=== PATIENT | female | born 1940 | race Caucasian/White ===

== ENCOUNTER 2019-10-01 17:13 | Emergency (ER) | payer MEDICARE, SELFPAY ==
--- NOTE | ~2019-10-01 | CT_ITS ---
EXAMINATION: CT brain wo con INDICATION: Facial numbness COMPARISON: 11/11/2012 TECHNIQUE: Standard unenhanced head CT. The dose-length product (DLP) was 605.33 mGy-cm. The mA was a djusted according to patient size. Iterative reconstruction technique was employed. FINDINGS: There is no acute intraparenchymal hemorrhage. No evidence of mass lesion. No evidence of a cute infarction. There is mild periventricular and subcortical hypodensity probably related to small vessel ischemic disease. There is mild prominence of the sulci and ventricles related to cerebral atr ophy. Intracranial calcified cerebral atherosclerosis is noted. There are no extra-axial collections. There is no mass effect or midline shift. The orbits and soft tissues are unremarkable. The visuali zed sinuses and mastoid air cells are well aerated. IMPRESSION: 1. No acute intracranial abnormality. 2. Age related findings. Reviewed, dictated and finalized at location A.
--- NOTE | ~2019-10-01 | XR_ITS ---
EXAMINATION: XR chest 1V portable INDICATION: Facial numbness TECHNIQUE: Portable AP chest at 1806 hours COMPARISON: 02/26/2014 FINDINGS: The lungs are free of acute opacities. There is no pleural effusion or pneumothorax. The ca rdiomediastinal silhouette is normal. The visualized bones and soft tissues are unremarkable. IMPRESSION: 1. No acute cardiopulmonary abnormality. Reviewed, dictated and finalized at location A.
[2019-10-01 17:16] VITALS: BP 179/77; PULSE 71; RESP 26; TEMP 36.2; O2SAT 97
--- NOTE | 2019-10-01 17:52 | ECG_ITS ---
Measurements Intervals [place] Rate: 57 P: 53 TN: 173 QRS: -48 QRSD: 121 T: 43 QT: 437 QTc: 429 Interpretive Statements SINUS BRADYCARDIA LEFT ANTERIOR FASCICULAR BLOCK ABNORMAL ECG Electronically Signed On 10-01-2019 19:17:50 CDT by Erwin Malcolm D.O.
[2019-10-01 17:54] VITALS: BP 179/77; PULSE 58; RESP 15; O2SAT 100
[2019-10-01 18:19] LABS: Glucose Point of Care 81 (65-105)
[2019-10-01 18:20] VITALS: PULSE 62; RESP 15; O2SAT 97
[2019-10-01 18:22] LABS: Basophils Percent Auto 0.5 % (0.2-1.2); Eosinophils Absolute Auto 0.3 K/mm3 (0-0.3); Eosinophils Percent Auto 3.5 % (0-4.4); Hematocrit 38.6 % (37.0-47.0); Hemoglobin 12.8 g/dL (12.0-15.0); Immature Granulocyte Absolute 0.01 K/mm3 (0.00-0.031); Immature Granulocyte Percent A 0.1 % (0-0.5); Lymphocytes Absolute Auto 1.88 K/mm3 (0.9-3.2); Lymphocytes Percent Auto 25.3 % (18.3-44.2); Mean Corpuscular HGB Conc 33.2 g/dl (32-36); Mean Corpuscular Hemoglobin 28.3 pg (26-34); Mean Corpuscular Volume 85.4 fl (80-100); Mean Platelet Volume 11.4 fl (7.4-10.4); Monocytes Absolute Auto 0.6 K/mm3 (0.1-0.6); Monocytes Percent Auto 7.8 % (2.6-8.5); Neutrophils Absolute Auto 4.7 K/mm3 (1.3-6.7); Neutrophils Percent Auto 62.8 % (45.5-73.1); Platelet Count Result 234 k/mm3 (150-375); Red Blood Count 4.52 M/mm3 (4.2-5.4); Red Cell Distribution Width 13.9 % (11.5-14.5); White Blood Count 7.4 K/mm3 (4.5-10.0)
[2019-10-01 18:33] LABS: Blood Urea Nitrogen 30 mg/dL (7-17); Calcium 8.9 mg/dL (8.4-10.2); Carbon Dioxide 26 mmol/L (22-30); Chloride 104 mmol/L (98-107); Estimated Glomerular Filt Rate 60; Glucose 91 mg/dL (65-105); INR 1.3; Potassium 4.2 mmol/L (3.4-5.0); Prothrombin Time 15.4 Seconds (11.1-14.7); Sodium 137 mmol/L (137-145)
[2019-10-01 18:34] LABS: Partial Thromboplastin Time 27.1 SECONDS (22.3-36.8)
[2019-10-01 18:45] LABS: Troponin I < 0.012 ng/mL (0.000-0.034)
--- NOTE | 2019-10-01 19:04 | ED.NEUROSD ---
HPI - Neuro Symptoms/Deficit General Chief Complaint: Neuro Symptoms/Deficit Stated Complaint: POSSIBLE cva Time Seen by Provider: 10/01/19 19:03 History of Present Illness HPI Narrative: Acute right sided facial pain this afternon. Lasted less than a few hours. Located in the lower half of the face and radiating into the neck and chest. sharp in character. Severe. No associated symptoms. Happened while walking the dog. Resolved spontaneously while driving. No Weakness, numbness, SOB, slurred speech. Related Data Home Medications Medication Instructions Recorded Confirmed diltiazem HCl [Cardizem] 30 mg PO DAILY 10/01/19 levothyroxine 88 mcg PO DAILY 10/01/19 Allergies Allergy/AdvReac Type Severity Reaction Status Date / Time No Known Allergies Allergy Verified 10/01/19 17:22 Review of Systems Review of Systems: All systems reviewed & are unremarkable except as noted in HPI and below Constitutional: Constitutional: Denies chills and Denies fever(s) Eyes: Eyes: Denies change in vision ENT: Denies sore throat Cardiovascular: Cardiovascular: Denies chest pain Respiratory: Respiratory: Denies dyspnea Gastrointestinal: Gastrointestinal: Denies nausea Neurologic: Denies dizziness, Denies numbness and Denies weakness Psychiatric: Psychiatric: Reports anxiety PMFSH Past Medical History Medical History (Updated 10/02/19 @ 01:23 by Tejas Coello MD) Anxiety and depression CKD (chronic kidney disease) stage 3, GFR 30-59 ml/min Essential (primary) hypertension Hypothyroidism Phlebitis and thrombophlebitis of unspecified deep vessels of unspecified lower extremity Protein S deficiency Family History Family History Mother Diabetes mellitus Family history of cardiovascular disease Family history of pulmonary embolism Father Cerebrovascular accident Social History Social History Smoking status: Never smoker Alcohol intake: never Gender identity (if verbalized by the patient): Female Exam Const: General: no acute distress and alert Orientation/consciousness: patient oriented x3 HENMT: Head: normal to inspection Ears: TM's normal bilaterally Face and sinus: normal facial exam and sinuses nontender Mouth: Yes moist mucous membranes Teeth and gingiva: dentition normal Eyes: Conjunctivae: conjunctivae normal Pupils: Equal, round and reactive pupils present EOM: EOMs intact bilaterally Resp: Effort & Inspection: normal respiratory effort Auscultation: clear to auscultation bilaterally Cardio: Rate: regular rate Rhythm: regular rhythm Skin: General skin exam: normal color Neuro: General: patient oriented x3, moves all extremities and CN's II-XI intact bilaterally Speech: normal speech Gait exam (Neuro): Normal gait present Extrem: General: normal to inspection Course Vital Signs Vital signs: Vital Signs Temperature 36.2 C L 10/01/19 17:16 Pulse Rate 71 10/01/19 17:16 Respiratory Rate 26 H 10/01/19 17:16 Blood Pressure 179/77 H 10/01/19 17:16 Pulse Oximetry 97 10/01/19 17:16 Temperature 36.8 C 10/01/19 21:08 Pulse Rate 78 10/01/19 21:08 Respiratory Rate 17 10/01/19 21:08 Blood Pressure 151/69 H 10/01/19 21:08 Pulse Oximetry 99 10/01/19 21:08 MDM - Neuro Symptoms/Deficit MDM Narrative Medical decision making narrative: Symptoms are fairly nonspecific and resolved long before her arrival here. Could be anginal equivalent, no sign of acute ischemia on EKG and troponins wer negative x2. No findings to suggest CVA. Could be trigeminal neuralgia, anxiety, dental pain Medical Records Attestation: I reviewed the patient's medical records. Lab Data Attestation: I reviewed the patient's lab results. Result diagrams: 10/01/19 18:13 10/01/19 18:13 Labs: Lab Results 10/01/19 10/01/19
[2019-10-01 20:07] LABS: Troponin I < 0.012 ng/mL (0.000-0.034)
[2019-10-01 20:31] VITALS: BP 133/87; PULSE 72; RESP 15; O2SAT 97
[2019-10-01 21:08] VITALS: BP 151/69; PULSE 78; RESP 17; TEMP 36.8; O2SAT 99
== END 2019-10-01 21:10 | disposition home or self-care (01) ==
PROVIDERS: Emergency Medicine; Emergency Provider Emergency Medicine; PCP Family Medicine
DX: R51 Headache (principal); I12.9 Hypertensive chronic kidney disease with stage 1 through stage 4 chronic kidney disease, or unspecified chronic kidney disease; N18.3 Chronic kidney disease, stage 3 (moderate); E03.9 Hypothyroidism, unspecified; D68.59 Other primary thrombophilia; R00.1 Bradycardia, unspecified; I44.4 Left anterior fascicular block
CPT/HCPCS: 36415; 70450; 71045; 80048; 82948; 84484; 85025; 85610; 85730; 93005; 99284

== ENCOUNTER 2021-11-16 01:02 | Emergency (ER) | payer MEDICARE, SELFPAY ==
[2021-11-16 01:06] VITALS: BP 155/103; PULSE 78; RESP 18; TEMP 36.7; O2SAT 98
--- NOTE | 2021-11-16 01:16 | ED.ANIMALBIT ---
HPI - Animal Bite General Chief Complaint: Animal Bite Stated Complaint: dog bite face Time Seen by Provider: 11/16/21 01:07 History of Present Illness HPI narrative: Patient is an 81-year-old female here for evaluation of a laceration sustained to her right upper lip 20 minutes prior to arrival. Patient was leaning down to kiss her dog when the dog jumped up and bit her on the upper lip. Notes a chunk of her lip came out. Denies head injury or other injury sustained in the incident. Patient unsure of last tetanus. Patient did not irrigate the wound and presented straight to the ED. Dog is vaccinated against rabies and up-to-date on all shots. Related Data Allergies Allergy/AdvReac Type Severity Reaction Status Date / Time No Known Allergies Allergy Verified 05/14/21 07:51 Review of Systems Review of Systems: Gen: Denies fevers or chills Eyes: Denies eye pain or visual change ENT: Denies congestion Respiratory: Denies shortness of breath or cough CV: Denies chest pain or palpitations GI: Denies abdominal pain nausea, emesis or diarrhea denies burning, urgency, frequency or hematuria Musculoskeletal: Denies back pain or muscle pain Neuro: Denies numbness, tingling, weakness or focal weakness Skin: Reports laceration to right upper lip. Except as documented, all other systems reviewed and negative [facility] Past Medical History Medical History Adult BMI 31.0-31.9 kg/sq m Anxiety and depression Arthritis Cardiac arrhythmia CKD (chronic kidney disease) stage 3, GFR 30-59 ml/min Elevated lipids Essential (primary) hypertension Heart murmur Hypothyroidism Phlebitis and thrombophlebitis of unspecified deep vessels of unspecified lower extremity Protein S deficiency Stroke Thyroid disease Surgical History Surgical History History of cholecystectomy History of hernia repair History of hysterectomy History of thyroidectomy Family History Family History Mother Diabetes mellitus Family history of cardiovascular disease Family history of pulmonary embolism Father Cerebrovascular accident Social History Social History Second hand tobacco smoke exposure: No Alcohol intake: never Substance use: never Substance use type: does not use Gender identity (if verbalized by the patient): Female Sexual Orientation (if Verbalized by the Patient): Straight or Heterosexual Spiritual care concerns: No Agree to blood products: Yes Exam Narrative: Gen: Alert, oriented, uncomfortable. Eyes: EOMI, no icterus ENT: 1 cm area of loss of the superficial and lateral aspect of the upper right lip extending from the labial commissure, does not reach philtrum, no active bleeding. superficial linear laceration to middle of upper lip not involving ángela border Pulm: Respirations even and unlabored, symmetric thorax expansion, no audible stridor or visible cyanosis CV: Regular rate per telemetry GI: No distension, no voluntary/involuntary guarding Neuro: AOx4, moves all extremities without apparent difficulty or weakness, follows commands Skin: Lip laceration as described above Psych: Normal mood/affect, insight/judgement good, adequate fund of knowledge, recent/remote memory intact Course Vital Signs Vital signs: Vital Signs Temperature 98.1 F 11/16/21 01:06 Pulse Rate 78 11/16/21 01:06 Respiratory Rate 18 11/16/21 01:06 Blood Pressure 155/103 H 11/16/21 01:06 Pulse Oximetry 98 11/16/21 01:06 Temperature 98.1 F 11/16/21 01:06 Pulse Rate 88 11/16/21 02:50 Respiratory Rate 18 11/16/21 02:50 Blood Pressure 150/90 H 11/16/21 02:50 Pulse Oximetry 99 11/16/21 02:50 MDM - Animal Bite MDM Narrative Medical decision making narrative: 81-year-
[2021-11-16] MEDS: TETANUS,DIPHTHERIA,AC PERTUSSIS ADULT (0.5 ML) BOOSTRIX IM (01:32)
[2021-11-16] MEDS: ACETAMINOPHEN 325 MG TABLET 650 MG PO (02:40)
[2021-11-16] MEDS: AMOXICILLIN/CLAVULANATE K 875-125 MG TAB 1 TABLET PO (02:41)
[2021-11-16 02:50] VITALS: BP 150/90; PULSE 88; RESP 18; O2SAT 99
== END 2021-11-16 03:02 | disposition home or self-care (01) ==
PROVIDERS: Emergency Provider Emergency Medicine; PCP Family Medicine
DX: S01.551A Open bite of lip, initial encounter (principal); Z23 Encounter for immunization; I12.9 Hypertensive chronic kidney disease with stage 1 through stage 4 chronic kidney disease, or unspecified chronic kidney disease; N18.30 Chronic kidney disease, stage 3 unspecified; D53.0 Protein deficiency anemia; E89.0 Postprocedural hypothyroidism; Z86.73 Personal history of transient ischemic attack (TIA), and cerebral infarction without residual deficits; W54.0XXA Bitten by dog, initial encounter
CPT/HCPCS: 90471; 90715; 99283; A9270

== ENCOUNTER 2022-02-07 12:27 | Outpatient (CLI) | payer MEDICARE, SELFPAY ==
--- NOTE | 2022-02-07 12:55 | ECHO_ITS ---
Patient Info Name: Kristi Garcia Age: 82 years : 1940 Gender: Female Ht: 64 in Wt: 140 lbs BSA: 1.70 m2 HR: 67 bpm BP: 130 / 55 mmHg Technical Quality: Good Exam Date: 02/07/2022 1:28 PM Exam Location: [facility] Patient Status: Outpatient Admit Date: 02/07/2022 Staff Ordering Physician: Erwin Malcolm DO Attending Provider: Erwin Malcolm DO Referring Physician: Gold REILLY; Exam Type: CA echo doppler color flow Study Info Indications R07.9 - Chest pain, unspecified Complete two-dimensional, color flow and Doppler transthoracic echocardiogram is performed. Strain analysis performed. History/Risk Factors Hypertension: Yes Summary 1. Complete two-dimensional, color flow and Doppler transthoracic echocardiogram is performed. 2. Left ventricular chamber dimension is normal. 3. Left ventricular systolic function is normal, estimated at 65-70%. 4. There is mildly increased left ventricular wall thickness. 5. The left ventricular diastolic function is grade I diastolic dysfunction. 6. E/e' 20 is elevated. 7. Global longitudinal strain is normal at -17.0%. 8. Left atrial chamber dimension is moderately enlarged. 9. There is severe aortic valve sclerosis. 10. There is moderate aortic valve stenosis with a peak velocity of 255 cm/s, mean gradient of 14 mmHg, and aortic valve area of 1.4 cm2. 11. There is mild aortic valve regurgitation. 12. The mitral valve has mildly calcified leaflets and moderately calcified annulus. 13. There is mild mitral valve regurgitation. 14. There is trace tricuspid valve regurgitation. 15. There is mild pulmonic regurgitation. 16. Dilated inferior vena cava with >50% collapse upon inspiration consistent with elevated right atrial pressure, 10 mmHg. Left Ventricle E/e' 20 is elevated. Global longitudinal strain is normal at -17.0%. Left ventricular chamber dimension is normal. Left ventricular systolic function is normal, estimated at 65-70%. There is mildly increased left ventricular wall thickness. The left ventricular diastolic function is grade I diastolic dysfunction. Right Ventricle Right ventricular systolic function is normal and with normal TAPSE 2.6 cm. Right ventricular chamber dimension is normal. Left Atria Left atrial chamber dimension is moderately enlarged. Right Atria Right atrial chamber dimension is normal. Aortic Valve The aortic valve is trileaflet. There is severe aortic valve sclerosis. There is moderate aortic valve stenosis with a peak velocity of 255 cm/s, mean gradient of 14 mmHg, and aortic valve area of 1.4 cm2. There is mild aortic valve regurgitation. Pulmonic Valve There is mild pulmonic regurgitation. Mitral Valve The mitral valve has mildly calcified leaflets and moderately calcified annulus. There is no mitral valve stenosis. There is mild mitral valve regurgitation. Tricuspid Valve RVSP is not calculated due to an inadequate TR jet. There is trace tricuspid valve regurgitation. Pericardium/Pleural There is no pericardial effusion. Inferior Vena Cava Dilated inferior vena cava with >50% collapse upon inspiration consistent with elevated right atrial pressure, 10 mmHg. Aorta The aortic root size at the sinus of Valsalva is normal. Left Ventricular Outflow Tract Name Value Normal
== END 2022-02-07 12:28 | disposition home or self-care (01) ==
PROVIDERS: PCP Family Medicine; Visit Provider Internal Medicine Cardiovascular Disease
DX: I08.3 Combined rheumatic disorders of mitral, aortic and tricuspid valves (principal)
CPT/HCPCS: 93306

== ENCOUNTER 2022-02-07 18:26 | Emergency (ER) | payer MEDICARE, SELFPAY ==
--- NOTE | 2022-02-07 18:27 | ED.HEATRA ---
HPI - Head Injury General Chief complaint: Wound/Laceration Stated complaint: SCALP LACERATION Time Seen by Provider: 02/07/22 18:31 Source: patient, RN notes reviewed and old records reviewed Mode of arrival: ambulatory Limitations: no limitations History of Present Illness HPI Narrative: 82-year-old female presents to [facility] with a scalp laceration patient is confused, does not know the day of the week. Patient does know her name and date of . Daughter states she has high anxiety and gets confused when she is stressed. Patient states that she thinks that she tripped over something fell hit her head. Bleeding is controlled. Happened just prior to arrival. Mechanism of Injury: fall Place: home Loss of Consciousness: unsure Location of injury: occipital (to right side) Related Data Allergies Allergy/AdvReac Type Severity Reaction Status Date / Time No Known Allergies Allergy Verified 01/16/22 08:55 Review of Systems Review of Systems: All systems reviewed & are unremarkable except as noted in HPI and below Constitutional: Constitutional: Reports no additional constitutional complaints, Denies chills and Denies fever(s) Eyes: Eyes: Reports no additional eye complaints ENT: Reports system reviewed and no additional complaints, except as documented Cardiovascular: Cardiovascular: Reports no additional cardiovascular complaints Respiratory: Respiratory: Reports no additional respiratory complaints Gastrointestinal: Gastrointestinal: Reports no additional gastrointestinal complaints Musculoskeletal: Musculoskeletal: Reports no additional musculoskeletal complaints Integumentary/Breasts: Skin/Breast: Reports as per HPI Comments: Laceration right occipital, right side Neurologic: Reports system reviewed and no additional complaints, except as documented Psychiatric: Psychiatric: Reports no additional psychiatric complaints Allergic/Immunologic: Allergic/Immunologic: Reports no additional allergic/immunologic complaints [facility] Past Medical History Medical History Adult BMI 31.0-31.9 kg/sq m Anxiety and depression Arthritis BMI 34.0-34.9,adult Cardiac arrhythmia CKD (chronic kidney disease) stage 3, GFR 30-59 ml/min Elevated lipids Essential (primary) hypertension Heart murmur Hypothyroidism Overweight Phlebitis and thrombophlebitis of unspecified deep vessels of unspecified lower extremity Protein S deficiency Stroke Thyroid disease Surgical History Surgical History History of cholecystectomy History of hernia repair History of hysterectomy History of thyroidectomy Family History Family History Mother Diabetes mellitus Family history of cardiovascular disease Family history of pulmonary embolism Father Cerebrovascular accident Sibling No problems noted. Sibling No problems noted. Social History Social History Smoking status: Never smoker Second hand tobacco smoke exposure: Yes Alcohol intake: never Substance use: never Substance use type: does not use Additional occupation/education comments: [employer] Gender identity (if verbalized by the patient): Female Sexual Orientation (if Verbalized by the Patient): Straight or Heterosexual Spiritual care concerns: No Agree to blood products: Yes Comments At the time of my signature, I reviewed and agree with the nursing past medical, surgical, social, and family history. There is no relevant family history pertinent to the patient complaint. Exam Const: General: cooperative, alert, anxious and confusion Nutritional Appearance: well nourished Orientation/consciousness: oriented to person and confusion HENMT: Head: normal to inspection Ears: sat math tutor
[2022-02-07 18:38] VITALS: BP 153/104; PULSE 100; RESP 16; TEMP 37.2; O2SAT 100
== END 2022-02-07 18:48 | disposition short-term general hospital (02) ==
PROVIDERS: Emergency Provider Nurse Practitioner; PCP Family Medicine
DX: S09.90XA Unspecified injury of head, initial encounter (principal); W19.XXXA Unspecified fall, initial encounter; S01.01XA Laceration without foreign body of scalp, initial encounter; M19.90 Unspecified osteoarthritis, unspecified site; I12.9 Hypertensive chronic kidney disease with stage 1 through stage 4 chronic kidney disease, or unspecified chronic kidney disease; N18.30 Chronic kidney disease, stage 3 unspecified; R01.1 Cardiac murmur, unspecified; E03.9 Hypothyroidism, unspecified; Z86.73 Personal history of transient ischemic attack (TIA), and cerebral infarction without residual deficits; D68.59 Other primary thrombophilia; Z86.72 Personal history of thrombophlebitis; F41.9 Anxiety disorder, unspecified; F32.A Depression, unspecified
CPT/HCPCS: 99212; G0463

== ENCOUNTER 2022-02-07 19:09 | Emergency (ER) | payer MEDICARE, SELFPAY ==
--- NOTE | ~2022-02-07 | CT_ITS ---
EXAMINATION: CT brain wo con DATE: 02/07/2022 20:37 INDICATION: Head injury TECHNIQUE: Computed tomography (CT) of the head was performed without intravenous contrast. Sagittal and coronal reconstructions were performed. The mA was adjusted according to patient size. Iterative reconstruction technique was employed. The dose-length product was 605.33 mGy-cm. COMPARISON: 10/01/2019 FINDINGS: No fracture. Unchanged small old lacunar infarct at the left temporal parietal white matter. No acute intracranial hemorrhage, acute infarction or abnormal extra axial fluid collection. There is mild sc attered white matter hypoattenuation consistent with chronic small vessel ischemic disease. Ventricl es are normal and symmetric. No mass/mass effect. Changes of bilateral intraocular lens replacement. The orbits, paranasal sinuses and mastoid air cells are normal. IMPRESSION: 1. No fracture or acute intracranial process. 2. Unchanged small old lacunar infarct at the left temporal parietal white matter. 3. Mild scattered white matter hypoattenuation consistent with chronic small vessel ischemic disease. Reviewed, dictated and finalized at location A. IMPRESSION: 1. No fracture or acute intracranial process. 2. Unchanged small old lacunar infarct at the left temporal parietal white yvette er. 3. Mild scattered white matter hypoattenuation consistent with chronic small ve ssel ischemic disease.
[2022-02-07 19:20] VITALS: BP 125/58; PULSE 72; RESP 18; TEMP 36.6; O2SAT 99
--- NOTE | 2022-02-07 19:54 | ED.FALL ---
HPI - Fall General Chief Complaint: Fall Stated Complaint: HEAD INJURY, ON BLOOD THINNERS Time Seen by Provider: 02/07/22 19:50 Source: patient and RN notes reviewed Mode of arrival: ambulatory Limitations: no limitations History of Present Illness HPI Narrative: This is an 82 year old female with history of protein s deficiency on eliquis who presents for evaluation of a head injury. Patient states she was walking inside home and she tripped. THis caused her to fall and hit her head on ground. She was able to get herself up and call her family. She denies LOC or headache. She denies any other complaints. Tetanus given within past 6 months. Related Data Allergies Allergy/AdvReac Type Severity Reaction Status Date / Time No Known Allergies Allergy Verified 02/07/22 19:19 Review of Systems Review of Systems: All systems reviewed & are unremarkable except as noted in HPI and below Constitutional: Constitutional: Denies chills and Denies fatigue Eyes: Eyes: Denies change in vision Cardiovascular: Cardiovascular: Denies chest pain Gastrointestinal: Gastrointestinal: Denies nausea Neurologic: Denies syncope and Denies headache(s) [facility] Past Medical History Medical History Adult BMI 31.0-31.9 kg/sq m Anxiety and depression Arthritis BMI 34.0-34.9,adult Cardiac arrhythmia CKD (chronic kidney disease) stage 3, GFR 30-59 ml/min Elevated lipids Essential (primary) hypertension Heart murmur Hypothyroidism Overweight Phlebitis and thrombophlebitis of unspecified deep vessels of unspecified lower extremity Protein S deficiency Stroke Thyroid disease Surgical History Surgical History History of cholecystectomy History of hernia repair History of hysterectomy History of thyroidectomy Family History Family History Mother Diabetes mellitus Family history of cardiovascular disease Family history of pulmonary embolism Father Cerebrovascular accident Sibling No problems noted. Sibling No problems noted. Social History Social History Smoking status: Never smoker Second hand tobacco smoke exposure: Yes Alcohol intake: never Substance use: never Substance use type: does not use Additional occupation/education comments: [employer] Gender identity (if verbalized by the patient): Female Sexual Orientation (if Verbalized by the Patient): Straight or Heterosexual Spiritual care concerns: No Agree to blood products: Yes Exam Const: General: no acute distress Nutritional Appearance: well nourished Orientation/consciousness: patient oriented x3 HENMT: Head: hematoma (right par) right parietal and laceration (right parietal with superficial 1.5 cm) Ears: external ears normal Face and sinus: normal facial exam Throat: posterior oropharynx normal Eyes: Pupils: Equal, round and reactive pupils present EOM: EOMs intact bilaterally Neck: Neck: normal visual inspection Chest: Chest palpation & inspection: normal inspection of the chest Resp: Effort & Inspection: normal respiratory effort Skin: General skin exam: normal color Neuro: General: patient oriented x3, moves all extremities and CN's II-XI intact bilaterally Cranial nerves: Yes Nystagmus not present Speech: normal speech Gait exam (Neuro): Normal gait present Extrem: General: normal to inspection Psych: Mental Status: mental status grossly normal Affect: normal affect Attitude: cooperative Course Reevaluation(s) Reevaluation #1: PAtient has CT brain performed due to head injury on [facility]. CT did not show acute hemorrhage. She has small superficial scalp laceration that I do not think needs nalini or suture. Bleeding controlled. Family at bedside. Jose
== END 2022-02-07 21:19 | disposition home or self-care (01) ==
PROVIDERS: Emergency Provider General Practice; PCP Family Medicine
DX: S01.01XA Laceration without foreign body of scalp, initial encounter (principal); D68.59 Other primary thrombophilia; I12.9 Hypertensive chronic kidney disease with stage 1 through stage 4 chronic kidney disease, or unspecified chronic kidney disease; N18.30 Chronic kidney disease, stage 3 unspecified; E03.9 Hypothyroidism, unspecified; E66.3 Overweight; Z68.33 Body mass index [BMI] 33.0-33.9, adult; Z86.73 Personal history of transient ischemic attack (TIA), and cerebral infarction without residual deficits; Z79.01 Long term (current) use of anticoagulants; Z77.22 Contact with and (suspected) exposure to environmental tobacco smoke (acute) (chronic); W01.0XXA Fall on same level from slipping, tripping and stumbling without subsequent striking against object, initial encounter
CPT/HCPCS: 70450; 99284

== ENCOUNTER 2022-08-22 12:24 | Outpatient (RCR) | payer MEDICARE, SELFPAY ==
--- NOTE | 2022-08-22 13:28 | PTOPEVDC ---
Assessment and note entered by Samir Shirley, PT Thank you for referring Kristi Garcia to [facility].? An evaluation has been completed. No further treatment is needed. Evaluation Information Diagnosis pain in R knee OA Subjective Information Patient is a poor historian, cannot recall any information about any of her falls, just that she does it a lot. Complain of the varicose veins in the LLE more than any issue with the R knee. Cannot states if she has any stairs at her home and will say she can barely walk around her house and then talk about how embarrassing it will be for her daughter to hold onto her shirt when she walks down all of the aisles at the grocery store without any walking issues. Reported Pain Level Pain Score Moderate Pain: Alexis Jain Additional Pain Score Comments pain in LLE below the knee with extended time in standing, she points to her varicose veins, but reports they are blood clots. Assessment PT Clinical Summary Kristi is an 82 year old female coming into the clinic secondary to Pain in the R knee oand OA. She has a history of falls. I could not reproduce pain in the R knee with any special tests. Patient has a 25/28 Tinetti score able to do 5 sit to stands in less than 9 seconds, both standardized test to suggest decreased risk of falls. She shows 4+/5 general DACIA LE strength. Main issues physical therapy show are heard from her or daughter are safety awareness issues and cognition issues. I do not feel physical therapy would show significant improvements in either of those and patient reports she does not want to be here she is just pleasing her daughter. Recommended assistive device, but patient is adamantly opposed to that. Plan of Care PT Services Indicated No Treatment Frequency and discharged from skilled physical therapy Duration
== END 2022-08-22 14:07 | disposition home or self-care (01) ==
LOC: ANHPT 12:24
PROVIDERS: PCP Family Medicine; Visit Provider Family Medicine
DX: M25.561 Pain in right knee (principal); G89.29 Other chronic pain; M19.90 Unspecified osteoarthritis, unspecified site
CPT/HCPCS: 97161

== ENCOUNTER 2022-08-23 20:38 | Emergency (ER) | payer OTHER, MEDICARE, SELFPAY ==
--- NOTE | ~2022-08-23 | XR_ITS ---
EXAMINATION: XR chest 1V portable INDICATION: Sepsis TECHNIQUE: Portable AP chest at 1251 hours COMPARISON: 10/01/2019 FINDINGS: The lungs are free of acute opacities. No pleural effusion or pneumothorax. The cardiomedia stinal silhouette is normal. IMPRESSION: 1. No acute cardiopulmonary abnormality. Reviewed, dictated and finalized at location A.
--- NOTE | ~2022-08-23 | CT_ITS ---
EXAMINATION: CT cervical spine wo con DATE: 08/23/2022 21:10 INDICATION: Head injury TECHNIQUE: Computed tomography (CT) of the cervical spine was performed without intravenous contrast. The dose-length product (DLP) was 472.62 mGy-cm. Automated exposure control and iterative reconstruc tion technique were employed. COMPARISON: None FINDINGS: There is moderate loss of intervertebral disc space height at C3-4, C5-C6, and C6-7. The ve rtebral body heights are maintained. There is no fracture. The odontoid process is intact. There is m ultilevel moderate to severe facet joint osteoarthritis. IMPRESSION: 1. Severe cervical spondylosis without acute findings. Reviewed, dictated and finalized at location F.
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
[2022-08-23 20:48] VITALS: BP 162/73; PULSE 80; RESP 18; TEMP 36.2; O2SAT 100
--- NOTE | 2022-08-24 00:07 | ECG_ITS ---
Measurements Intervals [place] Rate: 78 P: 52 IA: 185 QRS: -60 QRSD: 102 T: 47 QT: 400 QTc: 456 Interpretive Statements SINUS RHYTHM LEFT ANTERIOR FASCICULAR BLOCK [QRS AXIS <= -45, QR IN I, RS IN II] COMPARED TO ECG 10/01/2019 17:33:51 SINUS RHYTHM NOW PRESENT Electronically Signed On 08-24-2022 22:12:52 CDT by Shahla Hector M.D.
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
[2022-08-24 00:30] LABS: Basophils Percent Auto 0.6 % (0.2-1.2); Eosinophils Absolute Auto 0.2 K/mm3 (0-0.3); Hematocrit 37.2 % (37.0-47.0); Hemoglobin 11.7 g/dL (12.0-15.0); Immature Granulocyte Absolute 0.02 K/mm3 (0.00-0.031); Immature Granulocyte Percent A 0.3 % (0-0.5); Lymphocytes Percent Auto 19.2 % (18.3-44.2); Mean Corpuscular HGB Conc 31.5 g/dl (32-36); Mean Corpuscular Hemoglobin 28.2 pg (26-34); Mean Corpuscular Volume 89.6 fl (80-100); Mean Platelet Volume 10.5 fl (7.4-10.4); Monocytes Absolute Auto 0.6 K/mm3 (0.1-0.6); Monocytes Percent Auto 9.5 % (2.6-8.5); Neutrophils Absolute Auto 4.6 K/mm3 (1.3-6.7); Neutrophils Percent Auto 67.4 % (45.5-73.1); Platelet Count Result 242 k/mm3 (150-375); Red Blood Count 4.15 M/mm3 (4.2-5.4); Red Cell Distribution Width 14.1 % (11.5-14.5); White Blood Count 6.8 K/mm3 (4.5-10.0)
[2022-08-24] MEDS: SODIUM CHLORIDE 0.9% IV 1,000 ML 999 ML IV CONT (00:36)
[2022-08-24 00:44] LABS: Lactic Acid Reflex 0.7 mmol/L (0.7-2.0)
[2022-08-24 00:45] LABS: Alanine Aminotransferase 16 U/L (6-35); Alkaline Phosphatase 89 U/L (38-126); Anion Gap 8 mmol/L (8-16); Aspartate Amino Transferase 20 U/L (14-36); Bilirubin,Total 0.6 mg/dL (0.2-1.3); Blood Urea Nitrogen 18 mg/dL (7-17); Calcium 8.5 mg/dL (8.4-10.2); Carbon Dioxide 24 mmol/L (22-30); Chloride 107 mmol/L (98-107); Estimated CRCL calculation 42 ml/min; Estimated Glomerular Filt Rate > 60; Glucose 103 mg/dL (65-110); Potassium 3.9 mmol/L (3.4-5.0); Sodium 139 mmol/L (137-145)
[2022-08-24 00:56] LABS: Troponin I < 0.012 ng/mL (0.000-0.034)
[2022-08-24 01:54] LABS: Appearance Urine Cloudy (Clear); Bacteria Urine 1+ /hpf; Bilirubin Urine Negative (Negative); Blood Urine Negative (Negative); Color Urine Yellow (Yellow); Glucose Urine UA Negative (Negative); Ketones Urine Negative (Negative); Leukocyte Esterase Ur 2+ LEU/UL (Negative); Nitrate Urine Negative (Negative); Protein Urine Trace mg/dL (Negative); RBC Urine 0-2 /hpf (0-2); Specific Grav Ur 1.026 (1.001-1.035); Squamous Epithelial Cell Urine Few /hpf (Few); WBC Urine 21-50 /hpf
[2022-08-24 02:23] LABS: Add Urine Microscopic? YES
[2022-08-24 02:35] VITALS: BP 159/64; PULSE 82; RESP 18; O2SAT 98
[2022-08-24] MEDS: CIPROFLOXACIN 500 MG TAB PO (02:35)
== END 2022-08-24 02:53 | disposition home or self-care (01) ==
PROVIDERS: Emergency Provider Physician Assistant; PCP Family Medicine
DX: N39.0 Urinary tract infection, site not specified (principal); S09.90XA Unspecified injury of head, initial encounter; I12.9 Hypertensive chronic kidney disease with stage 1 through stage 4 chronic kidney disease, or unspecified chronic kidney disease; N18.30 Chronic kidney disease, stage 3 unspecified; I35.0 Nonrheumatic aortic (valve) stenosis; E89.0 Postprocedural hypothyroidism; D68.59 Other primary thrombophilia; M19.90 Unspecified osteoarthritis, unspecified site; E66.3 Overweight; Z68.30 Body mass index [BMI] 30.0-30.9, adult; Z86.73 Personal history of transient ischemic attack (TIA), and cerebral infarction without residual deficits; Z90.710 Acquired absence of both cervix and uterus; Z79.01 Long term (current) use of anticoagulants; V43.52XA Car driver injured in collision with other type car in traffic accident, initial encounter; M47.812 Spondylosis without myelopathy or radiculopathy, cervical region
CPT/HCPCS: 36415; 70450; 71045; 72125; 80053; 81001; 83605; 84484; 85025; 87040; 87086; 87088; 93005; 96360; 99284; A9270; J7030